=== PATIENT | female | born 1995 | race American Indian/Alaskan Native ===

== ENCOUNTER 2019-05-06 07:20 | Inpatient (IN) | payer OTHER ==
[~2019-05-06] VITALS: Ht 162.6 cm; Wt 97.0 kg
--- NOTE | ~2019-05-06 | OR ---
[facility] [address], [place] [address] Draft DATE OF OPERATION: 05/06/2019 SURGEON: Karlos Chavez DO PREOPERATIVE DIAGNOSES: 1. Intrauterine at 38 weeks gestation. 2. Breech presentation. 3. History of delivery. 4. Rh negative, status post RhoGAM. 5. pyelectasis. POSTOPERATIVE DIAGNOSES: 1. Intrauterine at 38 weeks gestation. 2. Breech presentation. 3. History of delivery. 4. Rh negative, status post RhoGAM. 5. pyelectasis. PROCEDURE PERFORMED: Primary low transverse delivery. [employer] TE[employer]ER: Luisana Rand MD ANESTHESIA: Spinal. ESTIMATED BLOOD LOSS: 600 mL. FINDINGS: Viable male born in the left sacrum transverse position with Apgars of 9 and 9 and weighing 6 pounds 11 ounces. Normal uterus, tubes, and ovaries. COMPLICATIONS: None. INDICATIONS: Ms. Siddiqui is a pleasant, 24-year-old, G2, P0-1-0-1, [place] female, who presented to Labor and Delivery in labor. Persistent breech presentation was noted. The patient was PATIENT NAME: DK SIDDIQUI OPERATIVE REPORT DATE OF : [birth year] REPORT #: [id number] PHYSICIAN: KARLOS CHAVEZ DO PCP: MATT PARKER MD REPORT IS CONFIDENTIAL AND NOT TO BE RELEASED WITHOUT AUTHORIZATION [address], [place] [address] Draft consented for primary low transverse delivery. Risks, benefits, and alternatives were discussed in detail with the patient. The patient understands and wishes to proceed with the procedure. TECHNIQUE: The patient was taken to the operating room where a time-out was performed to confirm correct patient, correct procedure. Spinal anesthesia was adequately established and the patient was prepped and draped in the supine position with a bump under the right hip. Vail catheter was inserted. Ancef 2 g were given preoperatively and no heparin was indicated. The patient does have remote history of reaction to amoxicillin as a child, but tolerated Ancef well. Once spinal anesthetic was confirmed to be adequate, a Pfannenstiel skin incision was made and carried down to the fascia. The fascia was nicked in the midline and fascial incision was extended bilaterally using curved Patel. Fascia was grasped with the Luis elevating the underlying rectus muscles, dissected off bluntly and sharply. Rectus muscles were divided in the midline. The peritoneum was grasped with hemostat and incised using Metzenbaum scissors. Peritoneal incision was extended bilaterally using blunt and sharp dissection. Survey of the abdomen and pelvis shows no abnormalities. An Berlin self-retractor was then placed and the lower uterine segment identified. Hysterotomy was performed using a surgical scalpel and amnion was ruptured and noted to be clear. The surgeon's hand was placed in the lower uterine segment. The buttocks elevated and delivered easily with the assistance of fundal pressure up to the axilla. The anterior arm was swept medial and delivered and the baby was rotated 180 degrees. The anterior arm was swept medial and delivered. The was then rotated occiput anterior. The head was flexed and the head was delivered without difficulty. No nuchal cord was noted. The was vigorous and cried at delivery. The cord was doubly clamped and cut and blood obtained for routine analysis. The was handed to the waiting pediatric team for further care. The placenta was manually expressed intact with a centrally inserted three-vessel cord. The uterus was cleared of any remaining products of conception and clot. The hysterotomy was then reapproximated using 0 Vicryl in a running locked manner. A 2nd imbricating stitch of 0 Vicryl was applied in a vertical manner with good hemostasis and imbrication. The uterus was irrigated and found to be hemostatic. The Berlin self-retractor was removed. ACell was applied to the lower uterine segment after the ovaries and tubes were examined and found to be normal and the pelvis hemostatic. Peritoneum was then reapproximated using 2-0 Vicryl in a running nonlocked manner. Rectus was examined and made hemostatic with Bovie electrocautery. Rectus was then reapproximated using 0 Vicryl in three loose interrupted sutures. ACell powder was applied to the rectus. Fascia was then reapproximated using 0 Vicryl in a running nonlocked manner. Subcu was reapproximated using 2-0 Vicryl in a running nonlocked manner after ensuring subcu was hemostatic. Skin was then reapproximated using surgical asa. The uterus was Crede'd for small amount of blood and the patient was taken to the PACU in good and stable condition. PATIENT NAME: DK SIDDIQUI OPERATIVE REPORT DATE OF : [birth year] REPORT #: [id number] PHYSICIAN: KARLOS CHAVEZ DO PCP: MATT PARKER MD REPORT IS CONFIDENTIAL AND NOT TO BE RELEASED WITHOUT AUTHORIZATION [address] [address] Draft Sponge, needle, and instrument count was correct x2 at the end of the procedure. Dr. Rand was present and participated in all portions of procedure. Karlos Chavez DO JDTiesha/MODL /[id number] Copies: ~ PATIENT NAME: DK SIDDIQUI OPERATIVE REPORT DATE OF : [birth year] REPORT #: [id number] PHYSICIAN: KARLOS CHAVEZ DO PCP: MATT PARKER MD REPORT IS CONFIDENTIAL AND NOT TO BE RELEASED WITHOUT AUTHORIZATION
[~2019-05-06 07:20] MED LIST: IBUPROFEN800 MG PO; MOBIC7.5 MG PO; PRENATAL TABLE1 EAC1 PO
--- NOTE | 2019-05-06 09:46 | NUR ---
05/06/19 0946 Yamile Rhoades 0939- PT ARRIVES TO PACU ALERT AND ORIENTED. PT REPORTS NO PAIN OR NAUSEA. PT'S BABY AND BABY'S FATHER AT THE BEDSIDE. RESP EVEN AND UNLABORED. OXYGEN SAT MID TO HIGH 90'S ON RA. IV TO RIGHT AC INFUSING WELL. 0979- BABY TO RIGHT BREAST WITH ASSISTANCE FROM TOMA SPRINGER.
--- NOTE | 2019-05-07 14:24 | PR ---
[facility] [address] [place], [place] [address] Signed PP Progress Notes Datetime Report Generated by CPDelio: 05/07/2019 14:24 SUBJECTIVE: [id number] Pain: Within normal limits Nausea/Vomiting: Denies Vital Signs: [id number] Vital Signs: Reviewed; Within Normal Limits EXAM: [id number] Cardiovascular: Normal Respiratory: Normal Abdomen/Uterus: Normal Lochia: Normal Vulva/Perineum: Not Done Breasts: Not Done CVA Tenderness: Normal Extremities: Normal Incision: Normal Progress: Normal Exam Comments: Fundus Firm U-2. Pt ; will check incision in the AM IMPRESSION/PLAN/PROCEDURES: [id number] Impression: Normal progression Plan: Continue present management Progress Notes: Pt seen and examined. Doing well. Ambulating, voiding, and tolerating full diet. Pain and lochia minimal. . No fevers/chills. No questions or concerns. Continue routine postop/ care Signing Physician: Karlos Chavez DO Copies: ~ *Electronically Signed* 05/07/19 1424 KARLOS CHAVEZ DO PATIENT NAME: DK SIDDIQUI PROGRESS NOTE DATE OF : [birth year] PHYSICIAN: KARLOS CHAVEZ DO RPT #: [id number] REPORT IS CONFIDENTIAL AND NOT TO BE RELEASED WITHOUT AUTHORIZATION
--- NOTE | 2019-05-08 12:13 | PR ---
[facility] [address] [facility] [place], [place] [address] Signed PP Progress Notes Datetime Report Generated by CPDelio: 05/08/2019 12:13 SUBJECTIVE: [id number] Pain: Within normal limits Nausea/Vomiting: Denies Flatus: Yes Bowel Movement: Yes Vital Signs: [id number] Vital Signs: Reviewed; Within Normal Limits EXAM: [id number] Cardiovascular: Normal Respiratory: Normal Abdomen/Uterus: Normal Lochia: Normal Vulva/Perineum: Not Done Breasts: Not Done CVA Tenderness: Normal Extremities: Normal Incision: Normal Progress: Normal Exam Comments: Fundus Firm U-2 nontender. Incision healing well IMPRESSION/PLAN/PROCEDURES: [id number] Impression: Normal progression Plan: Continue present management Progress Notes: Pt seen and examined. Doing well. Ambulating, voiding, and tolerating full diet. Pain and lochia minimal. with assistance of RN and pumping. No fevers/chills/other concerns. Anticipate d/c home tomorrow. Signing Physician: Karlos Chavez DO Copies: ~ *Electronically Signed* 05/08/19 1213 KARLOS CHAVEZ DO PATIENT NAME: DK SIDDIQUI PROGRESS NOTE DATE OF : [birth year] PHYSICIAN: KARLOS CHAVEZ DO RPT #: [id number] REPORT IS CONFIDENTIAL AND NOT TO BE RELEASED WITHOUT AUTHORIZATION
--- NOTE | 2019-05-09 11:24 | PR ---
[facility] [address] [place], [place] [address] Signed PP Progress Notes Datetime Report Generated by CPN: 05/09/2019 11:23 SUBJECTIVE: [id number] Pain: Within normal limits Nausea/Vomiting: Denies Flatus: Yes Bowel Movement: Yes Vital Signs: [id number] Vital Signs: Reviewed; Within Normal Limits EXAM: [id number] Cardiovascular: Normal Respiratory: Normal Abdomen/Uterus: Normal Lochia: Normal Vulva/Perineum: Not Done Breasts: Not Done CVA Tenderness: Normal Extremities: Normal Incision: Normal Progress: Normal Exam Comments: Fundus firm U-2 nontender. Incision healing well. IMPRESSION/PLAN/PROCEDURES: [id number] Impression: Normal progression Plan: Discharge Progress Notes: Pt seen and examined. Doing well. Ambulating, voiding, and tolerating full diet. Pain and lochia minimal. well. No fevers/chills/other concerns. Desires d/c home. All discharge teaching completed and questions answered. Signing Physician: Karlos Chavez DO Copies: ~ *Electronically Signed* 05/09/19 1123 KARLOS CHAVEZ DO PATIENT NAME: DK SIDDIQUI PROGRESS NOTE DATE OF : [birth year] PHYSICIAN: KARLOS CHAVEZ DO RPT #: [id number] REPORT IS CONFIDENTIAL AND NOT TO BE RELEASED WITHOUT AUTHORIZATION
== END 2019-05-09 12:05 | disposition home or self-care (01) | DRG 788 ==
LOC: FBCO 07:20 → FBC 07:30
PROVIDERS: ADMIT Obstetrics & Gynecology
PROC: 10D00Z1 Extraction of Products of Conception, Low, Open Approach (ICD-10-PCS; principal; 2019-05-06 09:00)
DX: O32.1XX0 Maternal care for breech presentation, not applicable or unspecified (principal); O32.2XX0 Maternal care for transverse and oblique lie, not applicable or unspecified; O35.8XX0 Maternal care for other (suspected) fetal abnormality and damage, not applicable or unspecified; Z3A.38 38 weeks gestation of pregnancy; Z37.0 Single live birth; Z88.0 Allergy status to penicillin
CPT/HCPCS: 01961; 36415; 85027; A9270; J0690; J1885; J2274; J2405; J2590; J7121